=== PATIENT | male | born 1965 | race Caucasian/White ===

== ENCOUNTER → 2018-06-16 12:47 | Outpatient (CLI) | payer MEDICARE ==
[~2018-06-16 12:47] MED LIST: ACTOS30 MG PO; ALBUTEROL SULF8.5 GM INH; CHANTIX 1 MG TAB1 MG PO; FLOMAX0.4 MG PO; GLUCOPHAGE1000 MG PO; JANUVIA100 MG PO; LASIX80 MG PO; LEVEMIR FL100 UNIT/1 SC; LIPITOR20 MG PO; LYRICA150 MG PO; NEURONTIN 300300 MG PO; NEURONTIN 400400 MG PO; NOVOLOG100 UNIT/1 SC; PHENERGAN25 M1 PO; TOUJEO; TUMS X-STR300 MG PO; VITAMIN D250000 UNIT PO
== END | disposition home or self-care (01) ==
LOC: D.US 12:47
DX: N18.5 Chronic kidney disease, stage 5 (principal)

== ENCOUNTER 2018-07-12 05:35 | Day surgery (SDC) | payer MEDICARE ==
[~2018-07-12] VITALS: Ht 188 cm; Wt 104.3 kg
--- NOTE | ~2018-07-12 | OP ---
PATIENT NAME: MATA BARNHART JR MEDICAL RECORD: [id number] :69 LOCATION:D.[facility] ADMISSION DATE: SURGEON: LIBAN VALENTINO MD DATE OF OPERATION: 07/12/2018 REFERRED BY: Dr. Hart. PREOPERATIVE DIAGNOSES: CKD V due to diabetes and hypertension, also super morbid obesity. OPERATION PERFORMED: 1. Creation of a left brachiocephalic arteriovenous fistula. 2. Laparoscopic implantation of a peritoneal dialysis catheter with subcutaneous extension exiting in the left upper quadrant of the abdomen. SURGEON: Liban Valentino MD ANESTHESIA: General endotracheal per [employer]. PREOPERATIVE NOTE: Mr. Barnhart is an unfortunate 53-year-old male with diabetes and complications. He will need dialysis soon. He was referred to me for creation of AV fistula as well as implantation of peritoneal dialysis catheter. DESCRIPTION OF PROCEDURE: Under general endotracheal anesthesia in supine position, the patient was prepped and draped in sterile manner. A Horatio drain was used as a proximal venous tourniquet. Nitroglycerin ointment was applied to the intact skin of the forearm and arm, and a duplex ultrasound examination performed, which demonstrated a very good cephalic vein above the antecubital space and a good median cubital vein draining both to the basilic and cephalic drainage basins. The cephalic vein at the wrist was small and I thought it best to go for the money with a brachial artery to cephalic vein fistula. A transverse incision was made and the vessels were exposed and controlled with Silastic loops. A gwtb-zw-vphw anastomosis was chosen. The vessels were approximated imki-hk-swts and occluded with doubly looped Silastic tapes and the vein was opened and flushed with heparinized saline and the artery was then opened for about 6 mm and flushed with heparinized saline proximally and distally. A gjsp-ib-[id number] anastomosis was then done with running 7-0 Prolene and when complete, the occluding loops and clamps were released and excellent flow developed immediately within the fistula that is in the cephalic vein proximally. I had attempted to construct a bidirectional outflow by disrupting valves and the median antebrachial vein with coronary artery dilator and this was really not successful. The median cubital branch to the basilic was ligated with a metallic Hemoclip and 3-0 Vicryl tie. The patient's wound was closed with interrupted inverted 3-0 Vicryl and running intracuticular 4-0 Monocryl and Dermabond glue. It was dressed with Maxorb Ag, Tegaderm, and Cavilon skin prep. Next, the patient was reprepped and redraped with Ioban drape on the abdomen. I used the coiled intraperitoneal catheter to measure from just underneath the symphysis pubis to a point on the anterior abdominal wall to the left of the midline. This proved to be at about the level of the cutaneous umbilicus, although the patient is extremely fat and such landmark of the umbilicus was unreliable. I made a longitudinal incision, so as to have ample room to maneuver the entry needle in order to create an intrarectus tunnel parallel to the posterior rectus sheath and peritoneum. From the point of predetermined entry, the needle was inserted and kept within the abdominal wall as far OPERATIVE REPORT [id number] MATA BARNHART JR distally as possible. Before entering the peritoneal cavity, a guidewire was inserted and over that, a 16-Mohawk peel-away introducer. A Roberts coiled catheter with subcutaneous extension was chosen. The coiled catheter was inserted, keeping the blue stripe facing up and the coiled catheter was positioned within the pelvis. I have gone ahead of myself, the abdomen was first entered with a 5 mm port through a small incision in the left upper quadrant and a 5-mm laparoscope inserted and a pneumoperitoneum established with carbon dioxide. Two additional 5-mm ports were placed laterally at about the level of the umbilicus and the left lower quadrant. Enterolysis with Harmonic scalpel was performed. The patient had extensive adhesions of omentum to the anterior abdominal wall in the upper abdomen, not as much in the lower abdomen and unfortunately, there was really no omentum in the pelvis and the enterolysis performed was not extensive and no omentectomy was performed. The catheter was positioned as I described. I then decided on the exit point in the left upper quadrant just beneath the costal margin actually and identified the site for a second incision. An incision was made and a tunnel created just anterior to the rectus sheath. The second catheter was measured and shortened and the first inserted catheter was measured and shortened and the 2 were put together with the titanium connector and Prolene ties. A tunnel was made connecting the 2 incisions and the catheter was pulled through that tunnel immediately anterior to the fascia and turned out just about right. The catheter was then placed and a curving subcutaneous tunnel with a tight exit snugly fitting around the catheter. The Dacron felt cuff is approximately 3 cm above the skin exit site. The catheter was then irrigated with saline and found to irrigate freely. I then attached this to a urologic irrigation bag and ran in 1500 cc of saline and then with gravity ran out 1500 cc. The catheter was subsequently heparin locked, clamped, and capped. The wounds were infiltrated with Marcaine and irrigated with Ancef/gentamicin solution and closed with interrupted inverted 3-0 Vicryl and running intracuticular Stratafix and Dermabond glue. The laparoscopic ports were removed and those sites closed also with interrupted inverted 3-0 Vicryl and Dermabond glue and dressed with Maxorb Ag, Tegaderm, and Cavilon skin prep. There was no titanium connector nor a transfer set available to me today in the operating room, so the catheter is simply coiled up and covered with the Medipore dressing. We will plan to send the patient home today and arrange for him to come back to have his catheter flushed, hopefully, within 72 hours. He will leave the initial dressings intact until then as instructed not to get them wet. He will continue his same medications and diet. Blood loss during the operation was about 5 cc. None was replaced. Sponges, instruments, and needles were accounted for and no surgical specimen was submitted for histopathology. TRANSINT:[id number] Voice Confirmation ID: [id number] DOCUMENT ID: [id number] OPERATIVE REPORT [id number] MATA BARNHART JR, JAMES MD CC: GEORGES HART MD [id number] DICTATION DATE: 07/12/18 1158 RN BABY: 07/12/18 1246 [facility] [address] [place] [address]
[~2018-07-12 05:35] MED LIST changes: -ALBUTEROL SULF8.5 GM INH; -FLOMAX0.4 MG PO; -LASIX80 MG PO; -LEVEMIR FL100 UNIT/1 SC; -LIPITOR20 MG PO; -LYRICA150 MG PO; -NOVOLOG100 UNIT/1 SC; -PHENERGAN25 M1 PO; -TUMS X-STR300 MG PO; -VITAMIN D250000 UNIT PO
[2018-07-12] MEDS ORDERED: LYRICA150 MG PO (07:09)
[2018-07-12] MEDS ORDERED: ALBUTEROL SULF8.5 GM INH (07:09)
[2018-07-12] MEDS ORDERED: VITAMIN D250000 UNIT PO (07:10)
[2018-07-12] MEDS ORDERED: NOVOLOG100 UNIT/1 SC (07:10)
[2018-07-12] MEDS ORDERED: LEVEMIR FL100 UNIT/1 SC (07:10)
[2018-07-12] MEDS ORDERED: FLOMAX0.4 MG PO (07:11)
[2018-07-12] MEDS ORDERED: LIPITOR20 MG PO (07:11)
[2018-07-12] MEDS ORDERED: PHENERGAN25 M1 PO (07:11)
[2018-07-12] MEDS ORDERED: LASIX80 MG PO (07:11)
[2018-07-12 07:19] VITALS: Ht 188 cm; Wt 104.3 kg
[2018-07-12 07:31] LABS: BASOPHILS 0.3 % (0-2); EOSINOPHILS 2.5 % (0-7); HEMATOCRIT 30.2 % (42.0-54.0); HEMOGLOBIN 9.8 g/dL (13.5-17.5); IMMATURE GRANULOCYTES 0.5 % (0-5); LYMPHOCYTES 14.8 % (15-50); MCH 28.6 pg (26.0-34.0); MCHC 32.5 g/dL (31.0-37.0); MEAN PLATELET VOLUME 9.3 fL (7.4-10.4); MONOCYTES 5.9 % (2-11); PLATELET COUNT 238 10x3/uL (130-400); RBC 3.43 10x6/uL (4.20-6.10); RDW 14.6 % (11.5-14.5)
[2018-07-12 07:48] LABS: ANION GAP 18.4 mmol/L (8-16); CALCIUM 8.2 mg/dL (8.5-10.1); CREATININE - SERUM 4.3 mg/dL (0.6-1.3); POTASSIUM - SERUM 5.4 mmol/L (3.5-5.1)
[2018-07-12 07:50] LABS: INR 1.19 (0.85-1.17); PROTIME 14.6 SECONDS (11.6-15.0)
--- NOTE | 2018-07-12 13:33 | NUR ---
1250 VOIDED SMALL AMOUNT OF URINE & SOFT FORMED BM. ASSISTED BACK TO BED. @ BEDSIDE. Olga Lidia TODD R.N.
--- NOTE | 2018-07-12 14:35 | NUR ---
1430 RESTING QUIETLY IN BED. ICE PACK APPLIED TO ABDOMEN. CONTINUES TO WEAR SLING TO LUE. REMAINS ON O2/2L/NASAL CANNULA WITH O2 SAT @ 90%. REMAINS SLEEPY. MRS. RAY INFORMED IF PT WAKES & CAN RETURN TO PREOP O2 LEVEL ON ROOM AIR, MAY BE DISCHARGED THEN. Olga Lidia TODD R.N.
--- NOTE | 2018-07-12 14:49 | NUR ---
1450 BEDSIDE REPORT TO Danis JAVIER R.N.. Olga Lidia TODD R.N.
--- NOTE | 2018-07-12 15:00 | NUR ---
PT DC INSTRUCTIONS REVIEWED AT THIS TIME, PT VERBALIZES UNDERSTANDING AND AGREES. IV CATH REMOVED AT THIS TIME, INTACT, NO REDNESS OR SWELLING NOTED.
--- NOTE | 2018-07-12 15:22 | NUR ---
PT LEAVING OPS SURGERY AT THIS TIME.
== END 2018-07-12 15:22 | disposition home or self-care (01) ==
LOC: D.OPS 05:35
PROVIDERS: Surgery; ATTEND Internal Medicine
DX: E11.22 Type 2 diabetes mellitus with diabetic chronic kidney disease (principal); I12.0 Hypertensive chronic kidney disease with stage 5 chronic kidney disease or end stage renal disease; N18.5 Chronic kidney disease, stage 5; Z99.2 Dependence on renal dialysis; E66.01 Morbid (severe) obesity due to excess calories; Z79.899 Other long term (current) drug therapy

== ENCOUNTER 2018-08-30 08:11 | Day surgery (SDC) | payer MEDICARE ==
[~2018-08-30] VITALS: Ht 193 cm; Wt 136.1 kg
[~2018-08-30 08:11] MED LIST changes: +ALBUTEROL SULF8.5 GM INH; +FLOMAX0.4 MG PO; +LASIX80 MG PO; +LEVEMIR FL100 UNIT/1 SC; +LIPITOR20 MG PO; +LYRICA150 MG PO; +NOVOLOG100 UNIT/1 SC; +PHENERGAN25 M1 PO; +VITAMIN D250000 UNIT PO
[2018-08-30 09:02] LABS: ANION GAP 14.2 mmol/L (8-16); CARBON DIOXIDE 26.2 mmol/L (21.0-32.0); CREATININE - SERUM 7.4 mg/dL (0.6-1.3); POTASSIUM - SERUM 5.4 mmol/L (3.5-5.1)
[2018-08-30 09:03] LABS: INR 1.15 (0.85-1.17); PROTIME 14.2 SECONDS (11.6-15.0)
[2018-08-30 09:04] LABS: CALCIUM 12.6 mg/dL (8.5-10.1)
[2018-08-30 09:10] LABS: HEMATOCRIT 31.9 % (42.0-54.0); HEMOGLOBIN 10.6 g/dL (13.5-17.5); LYMPHOCYTES 12.3 % (15-50); MCH 28.3 pg (26.0-34.0); MCHC 33.2 g/dL (31.0-37.0); MCV 85.3 fL (80.0-100.0); NEUTROPHILS 77.9 % (40-80); PLATELET COUNT 237 10x3/uL (130-400); RBC 3.74 10x6/uL (4.20-6.10); RDW 14.4 % (11.5-14.5); WBC 8.1 10x3/uL (4.8-10.8)
[2018-08-30] MEDS ORDERED: TUMS X-STR300 MG PO (09:47)
[2018-08-30 10:02] VITALS: Ht 193 cm; Wt 136.1 kg
--- NOTE | 2018-09-02 11:43 | OP ---
PATIENT NAME: MATA BARNHART JR MEDICAL RECORD: [id number] :69 LOCATION:D.[facility] ADMISSION DATE: SURGEON: LIBAN VALENTINO MD DATE OF OPERATION: 08/30/2018 PREOPERATIVE DIAGNOSES: 1. Chronic kidney disease V, starting on dialysis. 2. Morbid obesity. 3. Mechanical complication of peritoneal dialysis catheter. POSTOPERATIVE DIAGNOSES: 1. Chronic kidney disease V, starting on dialysis. 2. Morbid obesity. 3. Mechanical complication of peritoneal dialysis catheter. OPERATIONS PERFORMED: Laparoscopic revision of peritoneal dialysis catheter with enterolysis and placing a Prolene fixation sling on the anterior abdominal wall. SURGEON: Liban Valentino MD ANESTHESIA: General endotracheal per ODETTE and Dr. Goldman. PREOPERATIVE NOTE: Mr. Barnhart is a very nice 53-year-old white male, a patient of Dr. Oro, he is from [place] and has chronic renal disease. He has a functioning AV fistula, which was created in July and also in July I implanted a peritoneal dialysis catheter with upper abdominal extension. Initially, his catheter worked well and then it gradually stopped working. I performed a peritoneogram by injecting contrast via the catheter last week at [facility] and I identified adhesions surrounding the catheter, fixing it in the right lower quadrant along the right lateral wall of the pelvis. He is brought to the operating room now for laparoscopy and hopefully salvage. DESCRIPTION OF THE PROCEDURE: Under general endotracheal anesthesia in the supine position, the patient was prepped and draped in sterile manner. The abdomen was entered with a 5 mm XL Optiview port with a 0-degree 5-mm scope within, inserted through an incision beneath the costal margin and just lateral to the lateral edge of the rectus on the left. Pneumoperitoneum was established. The patient has extensive omental adhesions to the anterior abdominal wall in the upper half of the abdomen. These were present just as last time, although they were more angry and inflamed. I identified the peritoneal dialysis catheter in the pelvis and found it densely trapped adhesions between the small bowel and the right lateral pelvic sidewall and totally unrelated to omentum. I placed a 5-mm port through a small incision in the left lower quadrant and through that port, I used a Harmonic scalpel to help divide adhesions to the anterior abdominal wall in the upper abdomen, which were preventing access to the lower abdomen. I then lysed the adhesions around the catheter by blunt dissection and freed the catheter up completely. I then could place it back in the pelvis in the midline. I irrigated the catheter and cleared it of some bloody fluid and fibrin and noted that it now irrigates well. I made a small incision in the lower abdomen in the midline just above the bladder and through that placed a U-stitch of 2-0 Prolene using a Janeen suture passer passing the suture around the catheter to form a OPERATIVE REPORT [id number] MATA BARNHART JR sling to stabilize it and keep it in position in the anterior midline. The Prolene suture was tied and the subcutaneous tissues closed over it. The wounds were infiltrated with 0.25% Marcaine plain and the incision was then closed with interrupted inverted 3-0 Vicryl and Dermabond glue. They were dressed with Maxorb Ag, Tegaderm and Cavilon skin prep. The patient awakened and extubated. He was taken to the recovery room in stable condition. PLAN: The patient will go home this evening and hopefully can begin PD exchanges this tomorrow or certainly [facility]. I will be communicating with Lala Mathur RN about getting that done. Blood loss during the operation was about 10 cc. Sponges, instruments, and needles were accounted for. No drain was used and no surgical specimen was submitted for histopathology. No cultures were submitted. TRANSINT:[id number] Voice Confirmation ID: [id number] DOCUMENT ID: [id number] LIBAN VALENTINO MD at 1143 CC: GEORGES SAHU MD [id number] DICTATION DATE: 08/30/181741 HEALTH CENTER MANAGER: 08/31/18 0414 [facility] [place] 08/30/18 [id number] [place] [address]
== END 2018-08-30 19:30 | disposition home or self-care (01) ==
LOC: D.OPS 08:11
PROVIDERS: ATTEND Internal Medicine
DX: N18.5 Chronic kidney disease, stage 5 (principal); E66.01 Morbid (severe) obesity due to excess calories; Z68.36 Body mass index [BMI] 36.0-36.9, adult; T85.691A Other mechanical complication of intraperitoneal dialysis catheter, initial encounter; Z01.812 Encounter for preprocedural laboratory examination